=== PATIENT | male | born 1955 | race Caucasian/White ===

== ENCOUNTER → 2019-04-14 14:30 | Outpatient (CLI) | payer MEDICARE, MEDICAID, SELFPAY ==
--- NOTE | ~2019-04-14 | CT_ITS ---
EXAMINATION: CTA brain DATE: 04/14/2019 15:34 INDICATION: Occlusion and stenosis of right vertebral artery. Involuntary movements of head and mouth . TECHNIQUE: Computed tomographic angiography (CTA) of the head was performed without and with 100 mL O mnipaque-350 intravenous contrast. Automated exposure control and iterative reconstruction technique were employed. The dose-length product was 1389.25 mGy-cm. Maximum intensity projection 3D reconstru ctions were created. Volume-rendered 3D reconstructions of the intracranial arteries were created by the technologist on a separate workstation. COMPARISON: Brain MRI 05/07/2017 FINDINGS: Motion artifact is noted. There is no intracranial hemorrhage, acute infarction, or abnorma l intracranial mass lesion. The ventricles are normal in size. There is mucosal thickening in the par anasal sinuses. The orbits are normal. The mastoid air cells are normal. There are buck holes of the skull on the left. There are changes of anterior and posterior fusion procedures in cervical spine. T he vertebral arteries are codominant. There is no significant stenosis of basilar artery or the poste rior cerebral arteries. Motion artifact obscures the cervical carotid arteries. There is no significa nt stenosis of the intracranial internal carotid arteries or anterior or middle cerebral arteries. An terior communicating artery is normal. Posterior communicating arteries are not identified. There is no aneurysm. IMPRESSION: 1. Normal brain. No aneurysm or significant intracranial arterial stenosis. Sensitivity is moderately decreased by motion artifact. Reviewed, dictated and finalized at location A. FF SUPERVISOR IMPRESSION: 1. Normal brain. No aneurysm or significant intracranial arterial stenosis. Sen sitivity is moderately decreased by motion artifact.
[2019-04-14 14:56] LABS: Blood Urea Nitrogen 20 mg/dL (8-26); Estimated Glomerular Filt Rate 52
== END ==
PROVIDERS: PCP Internal Medicine
DX: M43.23 Fusion of spine, cervicothoracic region (principal)
CPT/HCPCS: 70496; Q9967

== ENCOUNTER → 2019-11-04 14:13 | Outpatient (CLI) | payer MEDICARE, MEDICAID, SELFPAY ==
--- NOTE | ~2019-11-04 | MR_ITS ---
EXAMINATION: MR cervical spine wo con DATE: 11/04/2019 15:08 INDICATION: Neck pain. 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 TECHNIQUE: Magnetic resonance imaging (MRI) of the cervical spine was performed without intravenous c ontrast. Sequences included sagittal T2-weighted FSE, sagittal STIR FSE, sagittal T1-weighted FSE, ax ial MERGE, and axial T2-weighted FSE. COMPARISON: Cervical spine MRI 08/21/2018, CT 10/10/2018, 04/14/2019 FINDINGS: Motion artifact is noted. There are changes of anterior fusion procedure from C3 to C7 with discectomies and interbody devices. There are changes of posterior fusion procedure from C2 to T2 wi th instrumentation. Vertebral body heights are normal. Intervertebral disc heights are normal. Motion artifact obscures evaluation of the spinal cord. There is mild facet joint hypertrophy at most level s in cervical spine. There is no more than mild neural foraminal stenosis at any cervical level, but motion artifact decreases sensitivity and specificity. There is no central canal stenosis in cervical spine. IMPRESSION: 1. Anterior fusion procedure from C3 to C7 and posterior fusion procedure from C2 to T2. 2. Mild cervical spondylosis. Sensitivity and specificity are decreased by artifacts from motion and instrumentation. 3. Spinal cord poorly evaluated due to motion artifact. Reviewed, dictated and finalized at location B. IMPRESSION: 1. Anterior fusion procedure from C3 to C7 and posterior fusion procedure from C2 to T2. 2. Mild cervical spondylosis. Sensitivity and specificity are decreased by pineda facts from motion and instrumentation. 3. Spinal cord poorly evaluated due to motion artifact.
== END ==
PROVIDERS: PCP Internal Medicine
DX: M50.03 Cervical disc disorder with myelopathy, cervicothoracic region (principal); Z98.1 Arthrodesis status; M47.812 Spondylosis without myelopathy or radiculopathy, cervical region
CPT/HCPCS: 72141